=== PATIENT | female | born 1950 | race Caucasian/White ===

== ENCOUNTER 2024-09-20 20:28 | Emergency (ER) | payer MEDICARE, MEDICAID ==
[~2024-09-20] VITALS: Ht 154.9 cm; Wt 68.2 kg
[~2024-09-20 20:28] MED LIST: AMLO-258 PO; ATOR40TA28 PO; LISI-894 PO; METF-1211 PO; SITA100 PO
[2024-09-20 20:45] VITALS: TEMP 98.3
[2024-09-20 21:48] VITALS: BP 155/63; PULSE 60; RESP 16; O2SAT 95
[2024-09-20 21:55] LABS: BASOPHILS % (AUTO) 0.9 % (0.0-2.0); EOSINOPHILS % (AUTO) 3.3 % (1.0-6.0); HEMATOCRIT 44.8 % (36-46); LYMPHOCYTES # (AUTO) 2.8 K/uL (1.0-4.8); LYMPHOCYTES % (AUTO) 32.6 % (22.0-44.0); MEAN CORPUSCULAR HEMOGLOBIN 24.9 pg (26.0-34.0); MEAN CORPUSCULAR HGB CONC 31.3 G/dL (31.0-37.0); MEAN CORPUSCULAR VOLUME 80 fL (80-100); MONOCYTES # (AUTO) 0.7 K/uL (0.1-1.0); MONOCYTES % (AUTO) 7.5 % (2.0-9.0); NEUTROPHILS # (AUTO) 4.9 K/uL (1.8-7.7); NEUTROPHILS % (AUTO) 55.7 % (40.0-70.0); PLATELET COUNT (AUTO) 200 K/uL (150-450); RED BLOOD CELL COUNT(AUTO) 5.63 MIL/uL (4.00-5.20); RED CELL DISTRIBUTION WIDTH 15.8 % (11.5-14.5); WHITE BLOOD COUNT (AUTO) 8.7 K/uL (4.5-11.0)
[2024-09-20 21:58] LABS: CREATININE 1.42 mg/dL (0.60-1.30); POTASSIUM 3.9 mmol/L (3.5-5.1)
[2024-09-20 21:59] LABS: CALCIUM, TOTAL 9.1 mg/dL (8.8-10.5)
[2024-09-20 22:08] LABS: TROPONIN I-HIGH SENSITIVITY 16 ng/L (<51)
[2024-09-20] MEDS ORDERED: ZOLP-280 PO (23:46)
== END 2024-09-20 23:57 | disposition home or self-care (01) ==
LOC: EMS 20:28
DX: F41.0 Panic disorder [episodic paroxysmal anxiety] (principal); G47.00 Insomnia, unspecified; R06.02 Shortness of breath; E11.9 Type 2 diabetes mellitus without complications; I10 Essential (primary) hypertension; E78.00 Pure hypercholesterolemia, unspecified; Z79.84 Long term (current) use of oral hypoglycemic drugs; Z79.899 Other long term (current) drug therapy
CPT/HCPCS: 71045; 80048; 82962; 83880; 84484; 85025; 93005; 99285; 36415-L1; 36415-TC